=== PATIENT | female | born 1995 | race Caucasian/White ===

== ENCOUNTER 2016-10-18 08:09 | Emergency (ER) | payer OTHER ==
[~2016-10-18] VITALS: Ht 172.7 cm; Wt 79.5 kg
[2016-10-18 08:15] VITALS: BP 131/73; PULSE 63; RESP 16; O2SAT 100
--- NOTE | 2016-10-18 08:31 | ED.REPORT ---
HPI-Dental/Mouth Prob Date of Service Oct 18, 2016 ED Provider: Jasson Braga MD Pt is a 21 year old female with a history of ___ who presents to the ED complaining of right upper tooth pain onset 2 days ago. She c/o associated right upper gum pain. She denies any other symptoms. Nursing Notes Stated Complaint: TOOTH AND GUM PAIN Chief Complaint: Dental Nursing Notes Reviewed: Yes Allergies: Coded Allergies: codeine (Verified Allergy, Severe, Anaphylaxis, 10/18/16) Scheduled Penicillin V Potassium (Penicillin V Potassium) 500 Mg Tablet 500 MG PO QID Scheduled PRN Ibuprofen (Ibuprofen) 800 Mg Tablet 800 MG PO TID PRN PRN For Pain General Time Seen by MD: 08:23 Chief Complaint Tooth pain Hx Obtained From: Patient Arrived By: Walk-in Quality: Painful Severity: Current: Moderate Severity: Maximum: Moderate Recent Healthcare: No recent doctor visit, No recent hospitalization Similar Sx Previous: No Past Medical History Past Medical History Denies - healthy Past Surgical History Denies Smoking History Unknown if Ever Smoker Social History Alcohol Use: Denies alcohol use Drug Use: Denies drug use Ambulatory Status Independent Review of Systems + Gum pain Ears / Nose / Throat: Reports: Toothache Complete sys rev & neg: except as marked. Physical Exam Initial Vital Signs Vital Signs (First) Date Time Temp Pulse Resp B/P Pulse Ox O2 Delivery O2 Flow Rate FiO2 10/18/16 08:15 36.9 63 16 131/73 100 Room Air Initial VS: Reviewed Head / Eyes: Atraumatic, Normocephalic Respiratory: Breath sounds normal, Clear to auscultation, No respiratory distress Cardiovascular: Regular rate & rhythm, Heart sounds normal, Intact distal pulses Abdomen / GI: Soft, Non-tender Extremities: Vascular intact, Neuro intact Skin: Warm, Dry, No cyanosis Neurologic: Alert, Oriented, Nonfocal Psychiatric: Mood/affect normal, Behavior normal ENT: Atraumatic, Airway patent Neck: Atraumatic, Full range of motion Re-Eval/Medical Decision Source of Hx: Old records Counseled Regarding: Diagnosis, Lab results, Need for follow-up, When/why to return to ED Discharge & Departure Disposition: Home Discharge Condition All VS Reviewed: Yes Condition: Stable Referrals: [facility] Scribe Attestation Portions of this note were transcribed by Herminia Aj. I, Dr. Braga personally performed the history, physical exam and medical decision-making; I reviewed and confirmed the accuracy of the information in the transcribed note. Signed by: Tom Burleson, 10/18/16 and 09:45. copies to: [facility] Jasson Braga MD Oct 18, 2016 08:31 Herminia Rose Oct 18, 2016 08:34
--- NOTE | 2016-10-18 09:15 | ED.REPORT ---
HPI-Dental/Mouth Prob Date of Service Oct 18, 2016 ED Provider: Jasson Braga MD The patient is an otherwise healthy 21 year old female who presents to the emergency department complaining of right upper dental pain that has worsened in the last few days. She was unable to sleep last night due to the pain. The tooth that is causing her pain has been broken for some time. She denies fever, chills, nausea or vomiting. Nursing Notes Stated Complaint: TOOTH AND GUM PAIN Chief Complaint: Dental Nursing Notes Reviewed: Yes Allergies: Coded Allergies: codeine (Verified Allergy, Severe, Anaphylaxis, 10/18/16) Scheduled Penicillin V Potassium (Penicillin V Potassium) 500 Mg Tablet 500 MG PO QID Scheduled PRN Ibuprofen (Ibuprofen) 800 Mg Tablet 800 MG PO TID PRN PRN For Pain General Time Seen by MD: 09:14 Chief Complaint Mouth pain, Tooth pain Hx Obtained From: Patient, Spouse Arrived By: Walk-in Onset Occurred: Yesterday Symptom Duration: Since onset Quality: Painful Severity: Current: Moderate Severity: Maximum: Severe Recent Healthcare: No recent hospitalization Similar Sx Previous: No Past Medical History Past Medical History Denies Past Surgical History Denies Family History Noncontributory Smoking History Unknown if Ever Smoker Social History Alcohol Use: Denies alcohol use Drug Use: Denies drug use Other Social History: Good social support, , Lives with children, Local resident Ambulatory Status Independent Review of Systems Constitutional: Denies: Chills, Fever Ears / Nose / Throat: Reports: Mouth pain, Toothache GI: Denies: Nausea, Vomiting Complete sys rev & neg: except as marked. Physical Exam Initial Vital Signs Vital Signs (First) Date Time Temp Pulse Resp B/P Pulse Ox O2 Delivery O2 Flow Rate FiO2 10/18/16 08:15 36.9 63 16 131/73 100 Room Air Initial VS: Reviewed General/Constitutional: Well-developed, Well-nourished Head / Eyes: Atraumatic, Normocephalic, PERRL Respiratory: Breath sounds normal, Clear to auscultation, No respiratory distress Cardiovascular: Regular rate & rhythm, Heart sounds normal, Intact distal pulses Abdomen / GI: Soft, Non-tender, No guarding, No rebound, No distention Lymphatic: No lymphadenopathy Extremities: Vascular intact, Neuro intact, No swelling, No tenderness Skin: Warm, Dry, No cyanosis Neurologic: Alert, Oriented, Nonfocal Psychiatric: Mood/affect normal, Behavior normal, Normal thought content ENT: Airway patent, Mucous membranes moist Tooth #7 is visibly cracked. No gingival swelling. No periapical abscess. Neck: Supple, No meningismus, Full range of motion, No adenopathy, No swelling , Non-tender, No masses Re-Eval/Medical Decision Source of Hx: Old records, Family Re-Evaluation/Progress : Time of Eval: 09:18 Re-Evaluation/Progress Note: Discussed plan for discharge. All questions were addressed. Counseled Regarding: Diagnosis, Need for follow-up, When/why to return to ED Discharge & Departure Primary Impression: Pain, dental Disposition: Home Discharge Condition All VS Reviewed: Yes Condition: Stable Additional Instructions: Thank you for entrusting us with your care today. It is important that you followup with a dentist in the next few days. Use 800 mg ibuprofen every 8 hours as needed for your pain. Take the antibiotic as prescribed. Return to the emergency department for any new or concerning symptoms. Referrals: [facility] Scribe Attestation Portions of this note were transcribed by Dian Bajwa. I, Dr. Hastings personally performed the history, physical exam and medical decision-making; I reviewed and confirmed the accuracy of the information in the transcribed note. Signed by: Tom Zavaleta, 10/18/2016 at 1000. copies to: [facility] Obi Hastings DO Oct 18, 2016 09:15 Dian Bajwa Oct 18, 2016 09:21
[2016-10-18] MEDS ORDERED: IBUP800T28 PO (09:22)
[2016-10-18] MEDS ORDERED: PENI500T PO (09:22)
[2016-10-18 09:35] VITALS: BP 127/67; PULSE 67; O2SAT 100
== END 2016-10-18 09:33 | disposition home or self-care (01) ==
LOC: SED 08:09
DX: K08.89 Other specified disorders of teeth and supporting structures (principal); Z88.5 Allergy status to narcotic agent